=== PATIENT | female | born 1995 | race Caucasian/White ===

== ENCOUNTER 2019-08-23 14:14 | Emergency (ER) | payer OTHER ==
--- NOTE | 2019-08-23 16:13 | ED ---
GI/ HPI - HPI Summary HPI Summary: Patient is a 24-year-old female who presents emergency department for evaluation of her IUD. Patient has been following with [facility] this week for vaginal discharge. She states she had a pelvic exam with cultures done last week which showed BV. She was treated with a pill and a cream per patient. Patient states mild pelvic pain developed and SOCIAL MEDIA DESIGNER ordered outpatient ultrasound. Ultrasound results showed displaced IUD was instructed to, to the ED. Patient notes she is currently having her menstrual cycle but does not note any current vaginal discharge. She notes mild pelvic cramping. She denies fever, chills, vomiting. Symptoms mild in severity. No current modifying factors. - History of Current Complaint Chief Complaint: EDOBProblems Time Seen by Provider: 08/23/19 16:08 Stated Complaint: NEEDS IUD REMOVED PER PT Hx Obtained From: Patient Pain Intensity: 0 - Allergy/Home Medications Allergies/Adverse Reactions: Allergies Allergy/AdvReac Type Severity Reaction Status Date / Time gluten Allergy Stomach Verified 08/23/19 14:20 Cramps PMH/Surg Hx/FS Hx/Imm Hx Previously Healthy: Yes Infectious Disease History: No Infectious Disease History: Denies: Traveled Outside the [place] in Last 30 Days Review of Systems Constitutional: Negative Negative: Fever, Chills Gastrointestinal: Negative Negative: Abdominal Pain, Vomiting, Nausea Genitourinary: Other - pelvic pain All Other Systems Reviewed And Are Negative: Yes Physical Exam Triage Information Reviewed: Yes Vital Signs On Initial Exam: Initial Vitals Temp Pulse Resp BP Pulse Ox 99.0 F 90 16 155/87 98 08/23/19 14:17 08/23/19 14:17 08/23/19 14:17 08/23/19 14:17 08/23/19 14:17 Vital Signs Reviewed: Yes Appearance: Positive: Well-Appearing - Pt. sitting on bed in NAD. Skin: Positive: Warm, Dry Head/Face: Positive: Normal Head/Face Inspection Eyes: Positive: Normal, EOMI Neck: Positive: Supple Abdomen Description: Positive: Nontender, Soft Pelvic Exam: Positive: Other - Exam performed with Paige Spring. External genitaila is unremarkable. Speculum exam reveals small amount of bleeding from cervix. Two IUD strings noted from cervix. No other discharge or lesions noted. IUD strings were grasps with ring forceps and IUD was removed with gental traction. Swabs obtained. Pt. tolerated well. Neurological: Positive: Normal, CN Intact II-III Psychiatric: Positive: Affect/Mood Appropriate Procedures - Procedure Summary Procedure Summary: IUD removal: IUD strings were grasps with ring forceps and IUD was removed with gentle traction. Swabs obtained. Pt. tolerated well. - Sedation Patient Received Moderate/Deep Sedation with Procedure: No Diagnostics - Vital Signs Vital Signs Temp Pulse Resp BP Pulse Ox 08/23/19 14:17 99.0 F 90 16 155/87 98 - Laboratory Lab Statement: Any lab studies that have been ordered have been reviewed, and results considered in the medical decision making process. GIGU Course/Dx - Course Course Of Treatment: Pt. with mild pelvic pain and displaced IUD. Case discussed briefly with SOCIAL MEDIA DESIGNER, Dr. Trejo, who recommends removing IUD. Pelvic U/ S per radiology: IMPRESSION: LOW-LYING IUD EXTENDING INTO THE CERVIX, QUESTIONABLY EXTENDING THROUGH THE ENDOMETRIUM. IUD removed as noted above. Pending cultures. Will f.u with SOCIAL MEDIA DESIGNER at [facility] for recheck and to discuss alternative control options. Tylenol or motrin for pain as directed. Will return to er for fever, increased pain, vomiting or if concerned. Pt. understands and agrees with plan. - Diagnoses Differential Diagnoses - Female: Cervicitis, STD, Vaginitis Provider Diagnoses: Pelvic pain, Malpositioned IUD Discharge ED - Sign-Out/Discharge Documenting (check all that apply): Patient Departure - Discharge Plan Condition: Improved Disposition: HOME Patient Education Materials: Intrauterine Device (DC) Referrals: [facility] [Outside] Additional Instructions: Please schedule a follow up appointment to discuss alternative control Tylenol or Motrin for discomfort as directed Will call if culture results are positive Return to ER for increased pain, fever, vomiting or if concerned - Billing Disposition and Condition Condition: IMPROVED Disposition: Home - Attestation Statements Provider Attestation: I have seen the patient with the CHINTAN and agree with the plan and documentation below except as noted: brief this is a 24-year-old female presents with painful IUD, gynecology recommends removal Daniele Dominguez MD
[2019-08-23 17:13] VITALS: BP 131/75
[2019-08-26 11:36] LABS: Trichomonas vag NAA Female Negative (Negative)
[2019-08-26 11:46] LABS: Chlamydia trachomatis NAA Negative (Negative); Neisseria gonorrhoeae (GC) NAA Negative (Negative)
== END 2019-08-23 17:12 | disposition home or self-care (01) ==
LOC: ED 14:14
DX: Z30.432 Encounter for removal of intrauterine contraceptive device (principal); R10.2 Pelvic and perineal pain
CPT/HCPCS: 87480; 87491; 87510; 87591; 87661; 99282